=== PATIENT | female | born 1990 | race Two or more races ===

== ENCOUNTER 2016-04-21 14:15 | Emergency (ER) | payer MEDICAID ==
[~2016-04-21] VITALS: Ht 157.5 cm; Wt 54.4 kg
[2016-04-21] MEDS ORDERED: IBUPROFEN600 MG ORAL (14:30)
[2016-04-21] MEDS ORDERED: ZENATANE40 MG PO (14:30)
[2016-04-21 14:47] VITALS: BP 135/93
[2016-04-21] MEDS ORDERED: Lidocaine 1% MPF 10mg/ml 5ml IM ONE (15:15)
[2016-04-21 15:18] VITALS: BP 135/93
[2016-04-21] MEDS ORDERED: BACITRACIN15 GM TOPIC (15:52)
[2016-04-21 16:00] VITALS: BP 135/93
--- NOTE | 2016-04-21 22:04 | Emergency Room Report ---
History of Present Illness General Chief Complaint: Wound Recheck/Suture Removal Source: Patient Present Illness HPI The patient is a 26-year-old female presenting with left middle finger pain. The patient was seen in the emergency department in [place] 10 days prior and diagnosed with a fracture of the distal phalanx and also had an avulsion of the nail. The patient had a laceration and is also presenting for suture removal. The patient states that she is experiencing 7/10 dull ache to this area which has improved. The patient was also given a prescription for antibiotics which she did finish. The pt denies DC from the finger, bleeding, numbness, or tingling, F. No other symptoms. Allergies: Coded Allergies: No Known Allergies (Unverified , 04/21/16) Patient History Past Medical History: see triage record Pertinent Family History: none Last Menstrual Period: 04/05/2016 Now: No Reviewed Nursing Documentation: PMH: Agreed, PSxH: Agreed Nursing Documentation-PMH Past Medical History: No Stated History Review of Systems All Other Systems: negative except mentioned in HPI Physical Exam Vital Signs Date Time Temp Pulse Resp B/P Pulse Ox O2 Delivery O2 Flow Rate FiO2 04/21/16 14:22 98.2 91 14 135/93 100 Room Air Sp02 EP Interpretation: reviewed, normal General Appearance: no apparent distress, alert, GCS 15, non-toxic Head: normocephalic, atraumatic Eyes: bilateral eye PERRL, bilateral eye normal inspection Musculoskeletal: back normal, gait/station normal, decreased range of motion - of the L 3rd DIPJ, tender - TTP over the L 3rd distal phalanx Neurologic: alert, oriented x3, responsive, motor strength/tone normal, sensory intact, speech normal Psychiatric: judgement/insight normal, memory normal, mood/affect normal, no suicidal/homicidal ideation Skin: warm/dry, well hydrated, laceration - L middle finger: well healed Lymphatic: no adenopathy Procedures Splinting Splinting : Consent: Verbal Location: L 3rd digit Pre-Made Type: metal Pre-Proc Neuro Vasc Exam: normal Post-Proc Neuro Vasc Exam: normal Patient Tolerated: Well Complications: None Medical Decision Making PA Attestation Dr. Laguna is my supervising physician. Patient management was discussed with my supervising physician Diagnostic Impression: Primary Impression: Encounter for wound re-check Additional Impression: Encounter for removal of sutures ER Course The patient is a 26-year-old female presenting with left middle finger pain after being diagnosed with a fracture and laceration of the finger Differential diagnosis considered: Wound infection, nonhealing wound, cellulitis , abscess Physical exam: vitals WNL. NAD Left third digit: There is one Prolene suture in place. Wound is well approximated. No ecchymosis. Limited range of motion of the DIPJ. TTP over the distal finger. No bleeding or DC. Digital block was placed with 1% lidocaine w.o epi. The nail was removed and was not secured to the skin in any way. Suture removal: 1 simple interrupted sutures were removed without complication. No bleeding or discharge. Wound is well approximated. No surrounding erythema. Sterile dressing applied with Xeroform and finger placed in splint. Pt will FU with PMD and is given a prescription for bacitracin. Last Vital Signs Date Time Temp Pulse Resp B/P Pulse Ox O2 Delivery O2 Flow Rate FiO2 04/21/16 16:00 98.2 69 14 135/93 100 Room Air Status: improved Disposition: HOME, SELF-CARE Condition: Improved Scripts Bacitracin (Bacitracin) 28.4 Gm Oint...g. 1 APPLIC TOPIC THREE TIMES A DAY, #28 GM Prov: YANIQUE ESTRADA 04/21/16 Referrals: HERMELINDO SHAFFER,REFERRING (PCP) Patient Instructions: Wound Check, Suture Removal, Care After Additional Instructions: I discussed my findings with the patient. All questions and concerns have been answered. Treatment and medication compliance have been addressed. I advised the patient that they need to follow up with PMD in 3-5 days. Return to ED if symptoms worsen, new symptoms arise, or if needed for any reason. Patient verbalized understanding of discharge instructions. The patient will followup with primary physician and hand surgeon as discussed YANIQUE ESTRADA Apr 21, 2016 22:04
== END 2016-04-21 16:27 | disposition home or self-care (01) ==
LOC: EMR 14:42
DX: S61.213D Laceration without foreign body of left middle finger without damage to nail, subsequent encounter (principal); S62.633D Displaced fracture of distal phalanx of left middle finger, subsequent encounter for fracture with routine healing; X58.XXXD Exposure to other specified factors, subsequent encounter; Z48.02 Encounter for removal of sutures; M79.645 Pain in left finger(s)
CPT/HCPCS: 29130; 99283